=== PATIENT | female | born 1955 | race Two or more races ===

== ENCOUNTER → 2017-08-03 | Outpatient (CLI) | payer MEDICARE, OTHER ==
[2017-06-26 15:12] VITALS: BP 140/73
[~2017-08-03] MED LIST: ASPI-630 PO; ATOR20TA58 PO; CLOP75TA PO; LABE200T2 PO; LISI-334 PO; METF500T4 PO; PANT40TA5 PO; SIMV10TA3 PO
[2017-08-03 14:17] LABS: CALCIUM 9.3 mg/dL (8.5-10.1); GFR 56.6; POTASSIUM 3.9 mmol/L (3.5-5.1)
== END | disposition home or self-care (01) ==
LOC: LAB 13:36
PROVIDERS: ATTEND Internal Medicine Cardiovascular Disease
DX: I10 Essential (primary) hypertension (principal)
CPT/HCPCS: 36415; 80048

== ENCOUNTER 2018-12-18 16:29 | Emergency (ER) | payer MEDICARE, OTHER ==
[~2018-12-18] VITALS: Ht 172.7 cm; Wt 76.7 kg
[~2018-12-18 16:29] MED LIST changes: -LABE200T2 PO; +LABE200T4 PO; +METF500T16 PO; -METF500T4 PO
--- NOTE | 2018-12-18 18:27 | PHYS DOC ---
Past Medical History Past Medical History: Diabetes-Type II, Hypertension, TIA Past Surgical History: No Surgical History Alcohol Use: None Drug Use: None Adult General Chief Complaint Chief Complaint: ANKLE PROBLEM HPI HPI Patient is a 63 year old female who presents with right ankle pain. Patient slipped and fell on the ice yesterday sustaining an eversion mechanism injury. Patient hurts mostly on the lateral portion of her ankle. Patient has been able to walk. Denies any numbness or tingling. Denies any other injury. Denies any head injury or syncope. Pain is moderate in intensity, sharp in nature. Worse with movement and ambulation. No home medicines were taken. Patient notes that she did not take her blood pressure medicine today. She is denying any chest pain, palpitations, headache, weakness, nor shortness of breath.[] Review of Systems Review of Systems Constitutional: Denies fever or chills [] Eyes: Denies change in visual acuity, redness, or eye pain [] HENT: Denies nasal congestion or sore throat [] Respiratory: Denies cough or shortness of breath [] Cardiovascular: No chest pain or palpitations[] GI: Denies abdominal pain, nausea, vomiting, bloody stools or diarrhea [] : Denies dysuria or hematuria [] Musculoskeletal: See history of present illness, no back pain.[] Integument: Denies rash or skin lesions [] Neurologic: Denies headache, focal weakness or sensory changes [] Endocrine: Denies polyuria or polydipsia [] All other systems were reviewed and found to be within normal limits, except as documented in this note. Current Medications Current Medications Current Medications Medications (Trade) Dose Ordered Sig/Kris Start Time Stop Time Status Last Admin Dose Admin Acetaminophen (Tylenol) 500 mg 1X ONCE 12/18/18 18:45 12/18/18 18:46 DC 12/18/18 19:06 500 MG Lisinopril (Prinivil) 20 mg 1X ONCE 12/18/18 18:30 12/18/18 18:31 DC 12/18/18 18:29 20 MG Allergies Allergies Allergies Coded Allergies Type Severity Reaction Last Updated Verified No Known Drug Allergies 06/20/15 No Physical Exam Physical Exam Constitutional: Well developed, well nourished, no acute distress, non-toxic appearance. [] HENT: Normocephalic, atraumatic, bilateral external ears normal, oropharynx moist, no oral exudates, nose normal. [] Eyes: PERRLA, EOMI, conjunctiva normal, no discharge. [] Neck: Normal range of motion, no tenderness, supple, no stridor. [] Cardiovascular:Heart rate regular rhythm, no murmur [] Lungs & Thorax: Bilateral breath sounds clear to auscultation [] Abdomen: Not examined[] Skin: Warm, dry, no erythema, no rash. [] Back: No tenderness, no CVA tenderness. [] Extremities: Right ankle: Tenderness and swelling over the lateral malleolus. No base of the fifth metatarsal tenderness. No knee pain., A joint above and a joined below were evaluated and were normal. Cap refills less than 2 seconds. Patient is distal neurovascularly intact. Left ankle is normal, no edema, no tenderness.[] Neurologic: Alert and oriented X 3, normal motor function, normal sensory function, no focal deficits noted. [] Psychologic: Affect normal, judgement normal, mood normal. [] Current Patient Data Vital Signs Vital Signs Date Time Temp Pulse Resp B/P (MAP) Pulse Ox O2 Delivery O2 Flow Rate FiO2 12/18/18 18:29 83 264/126 12/18/18 17:55 98.5 20 100 Room Air 98.5 EKG EKG [] Radiology/Procedures Radiology/Procedures Right ankle x-ray shows a distal fibula fracture well approximated[] Course & Med Decision Making Course & Med Decision Making Pertinent Labs and Imaging studies reviewed. (See chart for details) ED course: Patient arrived, was placed in bed, tolerate exam well. Her blood pressure was noted to be elevated and was given her dose of lisinopril that she neglected to take today. She was additionally given pain medicine. She tolerated the x-ray well. She had a splint applied after the x-ray. After the splint was applied she was distal neurovascularly intact. No complications. All findings were discussed with the patient including the need to take her blood pressure medicine as prescribed. Decision-making: There is no evidence of an open fracture, significant family displaced or comminuted fracture, nor neurovascular compromise. No evidence of secondary injury.[] Dragon Disclaimer Dragon Disclaimer This electronic medical record was generated, in whole or in part, using a voice recognition dictation system. Departure Departure Impression: Primary Impression: Closed fracture of right distal fibula Additional Impression: Hypertension Disposition: HOME, SELF-CARE Condition: IMPROVED Referrals: UNKNOWN PCP NAME (PCP) MARTINE SALDANA MD Call Thursday to set up an appointment this week Patient Instructions: Ankle Fracture, Cast or Splint Care, Crutch Use, DASH Diet, Hypertension Additional Instructions: Call Dr. Saldana's office on Thursday, the orthopedic surgeon, to set up follow- up appointment. Take your medication as prescribed. Return to the ER if worsening pain, weakness, or any other concerns. Scripts Hydrocodone/Apap 5-325 (NORCO 5-325 TABLET) 1 Each Tablet 1-2 EACH PO PRN Q6HRS PRN for PAIN, #15 as needed for pain Prov: KIRILL MELGAR DO 12/18/18 Meloxicam (MELOXICAM) 7.5 Mg Tablet 7.5 MG PO DAILY, #20 TAB Prov: KIRILL MELGAR DO 12/18/18 Problem Qualifiers Primary Impression: Closed fracture of right distal fibula Encounter type: initial encounter Fracture morphology: unspecified fracture morphology Qualified Codes: S82.831A - Other fracture of upper and lower end of right fibula, initial encounter for closed fracture Additional Impression: Hypertension Hypertension type: unspecified Qualified Codes: I10 - Essential (primary) hypertension KIRILL MELGAR DO Dec 18, 2018 18:27
[2018-12-18] MEDS ORDERED: LISINOPRIL 10 MG TABLET PO ONE (18:30)
[2018-12-18] MEDS ORDERED: ACETAMINOPHEN 500 MG TABLET PO ONE (18:45)
[2018-12-18] MEDS ORDERED: MELO7.5T29 PO (19:34)
[2018-12-18] MEDS ORDERED: HYDR-3164 PO (19:34)
[2018-12-18 20:25] VITALS: BP 191/114
--- NOTE | 2018-12-20 14:16 | RAD ---
Three-view right ankle study Clinical indications: Lateral right ankle pain and swelling. FINDINGS: Lateral soft tissue swelling is seen. There is a nondisplaced spiral fracture of the distal right fibular metadiaphysis. The mortise ankle joint is intact. IMPRESSION: Acute posttraumatic fracture of the distal right fibula. Electronically signed by: Yosef Campos MD (12/20/2018 2:12 PM) [id number]
== END 2018-12-18 20:11 | disposition home or self-care (01) ==
LOC: ER 16:29
DX: S82.831A Other fracture of upper and lower end of right fibula, initial encounter for closed fracture (principal); I10 Essential (primary) hypertension; E11.9 Type 2 diabetes mellitus without complications; Z86.73 Personal history of transient ischemic attack (TIA), and cerebral infarction without residual deficits; W00.0XXA Fall on same level due to ice and snow, initial encounter; Y93.89 Activity, other specified; Y92.89 Other specified places as the place of occurrence of the external cause; Y99.8 Other external cause status
CPT/HCPCS: 29125; 29505; 29515; 73610; 99284

== ENCOUNTER 2019-08-20 13:27 | Inpatient (IN) | payer OTHER ==
[~2019-08-20] VITALS: Ht 172.7 cm; Wt 75.7 kg
[~2019-08-20 13:27] MED LIST changes: +HYDR-3164 PO; +MELO7.5T29 PO; -PANT40TA5 PO; +PANT40TA77 PO; +SIMV10TA15 PO; -SIMV10TA3 PO
[2019-08-20] MEDS ORDERED: NITROGLYCERIN SUBLINGUAL 0.4 MG BOTTLE OF 25. SL PRN (14:00)
[2019-08-20] MEDS ORDERED: MORPHINE SULFATE 2 MG/ML VIAL. IV/SQ PRN (14:00)
[2019-08-20 14:08] LABS: BASO # 0.1 x10^3/uL (0.0-0.2); BASO % 1 % (0-3); EOS # 0.1 x10^3/uL (0.0-0.7); EOS % 1 % (0-3); HEMATOCRIT 44.2 % (36.0-47.0); HEMOGLOBIN 15.1 g/dL (12.0-15.5); LYMPH % 25 % (24-48); MEAN CORPUSCULAR HEMOGLOBIN 32 pg (25-35); MEAN CORPUSCULAR HGB CONC 34 g/dL (31-37); MEAN CORPUSCULAR VOLUME 93 fL (79-100); MONO # 0.8 x10^3/uL (0.0-1.1); MONO % 10 % (0-9); NEUT # 5.1 x10^3/uL (1.8-7.7); NEUT % 64 % (31-73); PLATELET COUNT 190 x10^3/uL (140-400); RED BLOOD COUNT 4.76 x10^6/uL (3.50-5.40); RED CELL DISTRIBUTION WIDTH 13.1 % (11.5-14.5)
[2019-08-20] MEDS ORDERED: ASPIRIN 325 MG TABLET PO ONE (14:15)
[2019-08-20] MEDS ORDERED: LIDO:MAALOX 1:1 20 ML SINGLE DOSE. SWSW ONE (14:15)
[2019-08-20 14:17] LABS: CALCIUM 9.6 mg/dL (8.5-10.1); CREATININE 1.5 mg/dL (0.6-1.0); GFR 35.2; POTASSIUM 3.5 mmol/L (3.5-5.1)
[2019-08-20 14:23] LABS: ALBUMIN 4.4 g/dL (3.4-5.0); ALBUMIN/GLOBULIN RATIO 1.1 (1.0-1.7); MAGNESIUM 1.7 mg/dL (1.8-2.4); TOTAL PROTEIN 8.5 g/dL (6.4-8.2)
--- NOTE | 2019-08-20 14:25 | RAD ---
ACUTE ABDOMEN SERIES History: Chest pain, heartburn for 2 days Comparison: June 24, 2017 chest radiograph Findings: Single view of the chest and single supine and upright views of the abdomen are submitted. There is again enlargement of the pericardial cardiac silhouette. There is again tortuous thoracic aorta, atherosclerotic calcification near arch. There is no lobar infiltrate, pleural fluid, pneumothorax. No free air is identified. No significantly dilated gas-filled small bowel is identified. There is retained stool in segments of the transverse colon. There is small somewhat linear opacity in the right pelvic region, uncertain AP location. There is likely phlebolith in the left pelvis. Impression: 1. There is again enlargement of the pericardial cardiac silhouette. There is an overall nonobstructive bowel gas pattern. Electronically signed by: Suresh Hudson MD (08/20/2019 2:22 PM) [facility]
[2019-08-20] MEDS ORDERED: LABETALOL 20 MG/4 ML DISP.SYRIN. IVP ONE (14:30)
--- NOTE | 2019-08-20 16:06 | PDOC1 ---
History and Physical Date of Admission Date of Admission DATE: 08/20/19 TIME: 16:04 Identification/Chief Complaint Chief Complaint seen in er with epigastric discomfort today, elevated troponin i, admitted for cardiac work-up Past Medical History Past Medical History Past Medical History Past Medical History: Diabetes-Type II, Hypertension, TIA Past Surgical History: No Surgical History Alcohol Use: None Drug Use: None PMH: PMH: HTN, IDDM, CVA, HLD FH: Family History: No pertinent hx (denies GI cancers) Social History: Smoke: No ALCOHOL: other (denies drinking, urine ethyl alcohol +) 2016 Drugs: None Cardiovascular: HTN, Hyperlipidemia CENTRAL NERVOUS SYSTEM: CVA GI: No pertinent hx Heme/Onc: No pertinent hx Hepatobiliary: No pertinent hx Psych: No pertinent hx Musculoskeletal: Osteoarthritis Infectious disease: No pertinent hx Renal/: No pertinent hx Endocrine: Diabetes, Other Past Surgical History Past Surgical History: No pertinent history Family History Family History: Hypertension Social History Smoke: No ALCOHOL: none Drugs: None Current Medications Current Medications Current Medications Aspirin (Janeth Aspirin) 325 mg 1X ONCE PO Last administered on 08/20/19at 14:14; Start 08/20/19 at 14:15; Stop 08/20/19 at 14:16; Status DC Nitroglycerin (Nitrostat) 0.4 mg PRN Q5MIN PRN SL CP RATING > 1/10 Last administered on 08/20/19at 14:15; Start 08/20/19 at 14:00; Stop 08/21/19 at 13:59 Morphine Sulfate (Morphine Sulfate) 2 mg PRN Q15MIN PRN IV/SQ PAIN GREATER THAN 3/10 Last administered on 08/20/19at 14:16; Start 08/20/19 at 14:00; Stop 08/21/19 at 13:59 Multi-Ingredient Mouthwash/Gargle (Gi Cocktail) 20 ml 1X ONCE SWSW Last administered on 08/20/19at 14:15; Start 08/20/19 at 14:15; Stop 08/20/19 at 14:16; Status DC Labetalol HCl (Normodyne Iv Push) 10 mg 1X ONCE IVP Last administered on 08/20/19at 14:44; Start 08/20/19 at 14:30; Stop 08/20/19 at 14:39; Status DC Active Scripts Active Matthews 5-325 Tablet (Acetaminophen/Hydrocodone Bitart) 1 Each Tablet 1-2 Each PO PRN Q6HRS PRN as needed for pain Meloxicam 7.5 Mg Tablet 7.5 Mg PO DAILY Labetalol Hcl 200 Mg Tablet 200 Mg PO BID Pantoprazole Sodium 40 Mg Tablet.dr 40 Mg PO DAILYAC Reported Simvastatin 10 Mg Tablet 1 Tab PO QHS Atorvastatin Calcium 20 Mg Tablet 1 Tab PO DAILY Clopidogrel (Clopidogrel Bisulfate) 75 Mg Tablet 1 Tab PO DAILY Lisinopril 20 Mg Tablet 1 Tab PO DAILY Aspirin 81 Mg Tab.chew 81 Mg PO Metformin Hcl 500 Mg Tablet 500 Mg PO BIDWMEALS Allergies Allergies: Coded Allergies: No Known Drug Allergies (Unverified , 06/20/15) ROS General: No: Chills, Night Sweats, Fatigue, Malaise, Appetite, Other PSYCHOLOGICAL ROS: No: Anxiety, Behavioral Disorder, Concentration difficultie, Decreased libido, Depression, Disorientation, Hallucinations, Hostility, Irritablity, Memory difficulties, Mood Swings, Obsessive thoughts, Physical abuse, Sexual abuse, Sleep disturbances, Suicidal ideation, Other HEENT: No: Heacaches, Visual Changes, Hearing change, Nasal congestion, Nasal discharge, Oral lesions, Sinus pain, Sore Throat, Epistaxis, Sneezing, Snoring, Tinnitus, Vertigo, Vocal changes, Other ALLERGY AND IMMUNOLOGY: No: Hives, Insect Bite Sensitivity, Itchy/Watery Eyes, Nasal Congestion, Post Nasal Drip, Seasonal Allergies, Other Cardiovascular: yes Chest Pain; No Palpitations, No Orthopnea, No Paroxysmal Noc. Dyspnea, No Edema, No Lt Headedness, No Other Gastrointestinal: No Nausea, No Vomiting, No Abdominal Pain, No Diarrhea, No Constipation, No Melena, No Hematochezia, No Other Musculoskeletal: No Gait Disturbance, No Joint Pain, No Joint Stiffness, No Joint Swelling, No Muscle Pain, No Muscular Weakness, No Pain In:, No Swelling In:, No Other Physical Exam General: Alert, Oriented X3, Cooperative, No acute distress HEENT: PERRLA Lungs: Clear to auscultation, Normal air movement Heart: RRR Breasts: Not examined Abdomen: Normal bowel sounds, Soft Rectal Exam: not examined Neuro: Normal speech, Cranial nerves 3-12 NL Psych/Mental Status: Mental status NL, Mood NL Vitals Vitals Vital Signs Date Time Temp Pulse Resp B/P (MAP) Pulse Ox O2 Delivery O2 Flow Rate FiO2 08/20/19 14:45 82 18 199/99 (132) 100 Nasal Cannula 08/20/19 13:30 98.0 98.0 Labs Labs Laboratory Tests Test 08/20/19 13:42 08/20/19 14:25 White Blood Count 8.0 x10^3/uL (4.0-11.0) Red Blood Count 4.76 x10^6/uL (3.50-5.40) Hemoglobin 15.1 g/dL (12.0-15.5) Hematocrit 44.2 % (36.0-47.0) Mean Corpuscular Volume 93 fL (79-100) Mean Corpuscular Hemoglobin 32 pg (25-35) Mean Corpuscular Hemoglobin Concent 34 g/dL (31-37) Red Cell Distribution Width 13.1 % (11.5-14.5) Platelet Count 190 x10^3/uL (140-400) Neutrophils (%) (Auto) 64 % (31-73) Lymphocytes (%) (Auto) 25 % (24-48) Monocytes (%) (Auto) 10 % (0-9) Eosinophils (%) (Auto) 1 % (0-3) Basophils (%) (Auto) 1 % (0-3) Neutrophils # (Auto) 5.1 x10^3/uL (1.8-7.7) Lymphocytes # (Auto) 2.0 x10^3/uL (1.0-4.8) Monocytes # (Auto) 0.8 x10^3/uL (0.0-1.1) Eosinophils # (Auto) 0.1 x10^3/uL (0.0-0.7) Basophils # (Auto) 0.1 x10^3/uL (0.0-0.2) Sodium Level 142 mmol/L (136-145) Potassium Level 3.5 mmol/L (3.5-5.1) Chloride Level 100 mmol/L (98-107) Carbon Dioxide Level 30 mmol/L (21-32) Anion Gap 12 (6-14) Blood Urea Nitrogen 26 mg/dL (7-20) Creatinine 1.5 mg/dL (0.6-1.0) Estimated GFR (Cockcroft-Gault) 35.2 BUN/Creatinine Ratio 17 (6-20) Glucose Level 173 mg/dL (70-99) Calcium Level 9.6 mg/dL (8.5-10.1) Magnesium Level 1.7 mg/dL (1.8-2.4) Total Bilirubin 1.0 mg/dL (0.2-1.0) Aspartate Amino Transf (AST/SGOT) 15 U/L (15-37) Alanine Aminotransferase (ALT/SGPT) 14 U/L (14-59) Alkaline Phosphatase 57 U/L (46-116) Creatine Kinase 153 U/L (26-192) Creatine Kinase MB (Mass) 0.9 ng/mL (0.0-3.6) Creatine Kinase MB Relative Index 0.6 % (0-4) Troponin I Quantitative 0.147 ng/mL (0.000-0.055) LF-Vfo-D-Type Natriuretic Peptide 266 pg/mL (0-124) Total Protein 8.5 g/dL (6.4-8.2) Albumin 4.4 g/dL (3.4-5.0) Albumin/Globulin Ratio 1.1 (1.0-1.7) Lipase 197 U/L (73-393) D-Dimer (Luz Marina) 0.32 ug/mlFEU (0.00-0.50) Laboratory Tests Test 08/20/19 13:42 08/20/19 14:25 White Blood Count 8.0 x10^3/uL (4.0-11.0) Red Blood Count 4.76 x10^6/uL (3.50-5.40) Hemoglobin 15.1 g/dL (12.0-15.5) Hematocrit 44.2 % (36.0-47.0) Mean Corpuscular Volume 93 fL (79-100) Mean Corpuscular Hemoglobin 32 pg (25-35) Mean Corpuscular Hemoglobin Concent 34 g/dL (31-37) Red Cell Distribution Width 13.1 % (11.5-14.5) Platelet Count 190 x10^3/uL (140-400) Neutrophils (%) (Auto) 64 % (31-73) Lymphocytes (%) (Auto) 25 % (24-48) Monocytes (%) (Auto) 10 % (0-9) Eosinophils (%) (Auto) 1 % (0-3) Basophils (%) (Auto) 1 % (0-3) Neutrophils # (Auto) 5.1 x10^3/uL (1.8-7.7) Lymphocytes # (Auto) 2.0 x10^3/uL (1.0-4.8) Monocytes # (Auto) 0.8 x10^3/uL (0.0-1.1) Eosinophils # (Auto) 0.1 x10^3/uL (0.0-0.7) Basophils # (Auto) 0.1 x10^3/uL (0.0-0.2) Sodium Level 142 mmol/L (136-145) Potassium Level 3.5 mmol/L (3.5-5.1) Chloride Level 100 mmol/L (98-107) Carbon Dioxide Level 30 mmol/L (21-32) Anion Gap 12 (6-14) Blood Urea Nitrogen 26 mg/dL (7-20) Creatinine 1.5 mg/dL (0.6-1.0) Estimated GFR (Cockcroft-Gault) 35.2 BUN/Creatinine Ratio 17 (6-20) Glucose Level 173 mg/dL (70-99) Calcium Level 9.6 mg/dL (8.5-10.1) Magnesium Level 1.7 mg/dL (1.8-2.4) Total Bilirubin 1.0 mg/dL (0.2-1.0) Aspartate Amino Transf (AST/SGOT) 15 U/L (15-37) Alanine Aminotransferase (ALT/SGPT) 14 U/L (14-59) Alkaline Phosphatase 57 U/L (46-116) Creatine Kinase 153 U/L (26-192) Creatine Kinase MB (Mass) 0.9 ng/mL (0.0-3.6) Creatine Kinase MB Relative Index 0.6 % (0-4) Troponin I Quantitative 0.147 ng/mL (0.000-0.055) AZ-Rfw-E-Type Natriuretic Peptide 266 pg/mL (0-124) Total Protein 8.5 g/dL (6.4-8.2) Albumin 4.4 g/dL (3.4-5.0) Albumin/Globulin Ratio 1.1 (1.0-1.7) Lipase 197 U/L (73-393) D-Dimer (Luz Marina) 0.32 ug/mlFEU (0.00-0.50) Images Images Nurse/Tech Notes [id number], lungs sound clear Consent: The procedure was explained to the patient in lay terms. Informed consent was witnessed. Timeout was entered into [employer]. History and Stress Test performed by Araceli Jeffrey R.N. Pharm. Details Pharmacologic stress testing was performed using 0.4mg per 5ml of regadenoson given intravenously over 7-10 seconds. Stress Symptoms No chest pain or symptoms. POST EXERCISE Reason for Termination: Infusion complete Max HR: 96 bpm Max Blood Pressure: 102/60mmHg Blood Pressure response to exercise: Blunted blood pressure during stress. Chest Pain: No. Arrhythmia: No. ST Change: No. INTERPRETATION Stress EKG Conclusion: No evidence of vasodilator induced EKG changes. Imaging Protocol IMAGE PROTOCOL: Rest Tc-99m/stress Tc-99m 1 day Rest: Stress: Viability: Radiopharm. Tc99m Sestamibi Tc99m Sestamibi Dose 11.2mCi 35.5mCi Duration 15min. 10min. Img Date 06/26/2017 06/26/2017 Inj-Img Time 60min. 60min. Rest Admin Site: IV - Left Hand Director Of Marketing Communications: SELENA Foy ARRT (R)(N) Stress Admin Site: IV - Left Hand Director Of Marketing Communications: AV Pack STRESS DATA End Diast. Vol. 82.0ml Av. Heart Rate 69.0bpm End Syst. Vol. 32.0ml CO Index BSA 0.0L/min Myocardial Mass 122.0g Eject. Fraction 61.0% Stress Rates Pk. Fill Rate 2.19EDV/sec LVtime Pk. Fill 134.80msec Pk. Empty Rate 3.34ESV/sec LVtime Pk. Eject 207.93msec 11/11 Pk. Fill 1.33EDV/sec Stress Scores Regional WT 3.00 Summed WT 33.00 Regional WM 0.00 Summed WM 6.00 LV Perfusion There is a small sized, moderate in intensity fixed lateral wall defect, likely artifactual in nature. Wall Motion Normal wall motion. LV Perf. Quant 17 Seg. SSS 7.00 17 Seg. SRS 2.00 17 Seg. SDS 5.00 Stress Defect Extent (% LAD) 0.00 Rest Defect Extent (% LAD) 0.00 Rev. Defect Extent (% LAD) 0.00 Stress Defect Extent (% LCX) 67.50 Rest Defect Extent (% LCX) 52.50 Rev. Defect Extent (% LCX) 47.50 Stress Defect Extent (% RCA) 0.00 Rest Defect Extent (% RCA) 0.00 Rev. Defect Extent (% RCA) 0.00 Stress Defect Extent (% FARHAD) 12.20 Rest Defect Extent (% FARHAD) 9.10 Rev. Defect Extent (% FARHAD) 8.50 Other Information Quality:Average Risk Assessment: Low Risk Conclusion 1. No evidence of vasodilator induced EKG changes. 2. Fixed lateral wall defect suggestive of artifact. 3. Normal LV function. EF 61% 4. Low risk study. DICTATED and SIGNED BY: MARIE DOWD MD DATE: 06/26/17 7107 CC: DAGO BAR III DO; HECTOR ALATORRE MANAGER BANQUET; SUMIT BYERS Jr, MD ~ Pulmonary Valve PV Peak Velocity 140.5cm/s Pulmonary Vein S1 Velocity 69.3cm/s D2 Velocity 36.9cm/s PVa duration 74msec LEFT VENTRICLE The left ventricle is normal size. There is moderate concentric left ventricular hypertrophy. The left ventricular systolic function is normal. The Ejection Fraction is 65-70%. There is normal LV segmental wall motion. Transmitral Doppler flow pattern is Grade I-abnormal relaxation pattern. RIGHT VENTRICLE The right ventricle is not well visualized. Portions of the right ventricle seen show normal ventricular systolic function. ATRIA The left atrium size is normal. The right atrium is not visualized, unable to assess. The interatrial septum is intact with no evidence for an atrial septal defect or patent foramen ovale as noted on 2-D or Doppler imaging. AORTIC VALVE The aortic valve is mildly sclerotic. The aortic valve is trileaflet. Doppler and Color Flow revealed no significant aortic regurgitation. There is no significant aortic valvular stenosis. MITRAL VALVE Mitral annular calcification is mild. The mitral valve leaflets are thickened. There is no evidence of mitral valve prolapse. There is no mitral valve stenosis. Doppler and Color Flow revealed no mitral valve regurgitation noted. TRICUSPID VALVE Doppler and Color Flow revealed no tricuspid valve regurgitation noted. Unable to determine pulmonary artery pressure at exam time. PULMONIC VALVE The pulmonary valve is not well visualized but appears to open adequately. Doppler and Color Flow revealed pulmonic valvular regurgitation. There is no pulmonic valvular stenosis by spectral Doppler. GREAT VESSELS The aortic root is normal in size. The ascending aorta is normal in size. The pulmonary artery is normal. The IVC is normal in size and collapses >50% with inspiration. PERICARDIAL EFFUSION There is no evidence of significant pericardial effusion. Critical Notification Critical Value: No <Conclusion> The left ventricular systolic function is normal. The Ejection Fraction is 65-70%. There is normal LV segmental wall motion. Transmitral Doppler flow pattern is Grade I-abnormal relaxation pattern. There is no evidence of significant pericardial effusion. DICTATED and SIGNED BY: VALENTINA MARQUEZ MD DATE: 06/25/17 2322 CC: DAGO BAR III DO; HECTOR ALATORRE APRN; VALENTINA MARQUEZ MD; SUMIT BYERS Jr, MD ~ MRI Brain without contrast History:Hypertension, dizziness, abnormal head CT Technique: Multiplanar, multisequential noncontrast MR imaging was performed of the brain. Contrast: None Comparison: None Findings: There is no evidence of recent infarct or cytotoxic edema. Ventricular size is within normal limits. There is mild prominence of the supratentorial subarachnoid spaces near the vertex.There is no significant midline shift, intra-axial mass effect, or focal abnormal extra-axial fluid collection. There is multifocal overall moderate T2 and FLAIR hyperintense signal abnormality of the supratentorial white matter bilaterally, greatest of the bilateral centrum semiovale. Some foci have a perpendicular orientation relative to the lateral ventricles. There are also superimposed foci of old lacunar infarcts of the left caudate nucleus, right frontal white matter, and also at the margin of the right rouse radiata and basal ganglia. There is also small focus of T2 and FLAIR hyperintense signal abnormality of the right cerebellum. There is focus of hemosiderin deposition of the right basal ganglia compatible with old microhemorrhage. There is preservation of the major intracranial flow-voids at the skull base. The mastoid air cells are mostly aerated, minimal fluid inferiorly on the right. The cerebellar tonsils are at the lower limits of normal in location. There is no significant abnormality of the pineal gland or pituitary gland. There is preserved marrow signal of the clivus. There is a small 0.4 cm Tornwaldt's cyst. There is mild left maxillary sinus mucosal thickening, also likely small mucous retention cysts of the bilateral maxillary sinuses. There is mild bilateral ethmoid air cell mucosal thickening. Impression: 1. There is no evidence of recent infarct or intracranial mass effect. 2. Multifocal overall moderate T2 and FLAIR hyperintense abnormality of the supratentorial white matter is most likely due to chronic microvascular ischemic disease given the history of hypertension unless known previous history of an inflammatory demyelinating disease. There are also small old lacunar infarcts as stated. There is a focus of old microhemorrhage of the right basal ganglia. Electronically signed by: Wai Brothers MD (06/24/2017 5:34 PM) [facility] DICTATED and SIGNED BY: WAI BROTHERS MD DATE: 06/24/17 1726 ACUTE ABDOMEN SERIES History: Chest pain, heartburn for 2 days Comparison: June 24, 2017 chest radiograph Findings: Single view of the chest and single supine and upright views of the abdomen are submitted. There is again enlargement of the pericardial cardiac silhouette. There is again tortuous thoracic aorta, atherosclerotic calcification near arch. There is no lobar infiltrate, pleural fluid, pneumothorax. No free air is identified. No significantly dilated gas-filled small bowel is identified. There is retained stool in segments of the transverse colon. There is small somewhat linear opacity in the right pelvic region, uncertain AP location. There is likely phlebolith in the left pelvis. Impression: 1. There is again enlargement of the pericardial cardiac silhouette. There is an overall nonobstructive bowel gas pattern. Electronically signed by: Wai Brothers MD (08/20/2019 2:22 PM) [facility] DICTATED and SIGNED BY: WAI BROTHERS MD DATE: 08/20/19 1422 VTE Prophylaxis Ordered VTE Prophylaxis Devices: Yes VTE Pharmacological Prophylaxi: No Assessment/Plan Assessment/Plan impression 1. chest discomfort 2. elevated troponin i 3. hx hypertension 4. small old lacunar infarcts mri 2017 focus of old microhemorrhage of the right basal ganglia. 5. HX GERD plan admit serial troponin i cardiology consult NOW echo cvc bed bp control home meds DVT PROPHYLAXIS d/w RADHA IN ER 74 MIN PT EXAM, CHART REVIEW, > 50% OF TIME SPENT WITH EXAM, CHART REVIEW, PT CARE COORDINATION YELENA WADE MD Aug 20, 2019 16:06
[2019-08-20] MEDS ORDERED: DOCUSATE SODIUM 100 MG CAPSULE. PO PRN (16:15)
[2019-08-20] MEDS ORDERED: LORazepam 0.5 MG TABLET PO PRN (16:15)
[2019-08-20] MEDS ORDERED: cloNIDine HCL 0.1 MG TABLET PO PRN (16:15)
[2019-08-20] MEDS ORDERED: guaiFENesin ORAL 200 MG/10 ML LIQUID. PO PRN (16:15)
[2019-08-20] MEDS ORDERED: HYDROcodone/APAP 5/325MG 1 TAB TABLET PO PRN ×2 (16:15→16:30)
[2019-08-20] MEDS ORDERED: ALBUTEROL SULFATE 2.5 MG/3 ML NEBU. NEB PRN (16:15)
[2019-08-20] MEDS ORDERED: ACETAMINOPHEN 325 MG TABLET. PO PRN (16:15)
[2019-08-20] MEDS ORDERED: 0.9 % SODIUM CHLORIDE 10 ML DISP.SYRIN. IV PRN (16:15)
[2019-08-20] MEDS ORDERED: ONDANSETRON PF 4 MG/2 ML VIAL. IV PRN ×2 (16:15→16:30)
[2019-08-20] MEDS ORDERED: IV NORMAL SALINE 1000ML BAG 1,000 ML IV ONE (16:30)
[2019-08-20] MEDS ORDERED: MORPHINE SULFATE 4 MG/ML VIAL. IV PRN (16:30)
--- NOTE | 2019-08-20 16:38 | PHYS DOC ---
Past Medical History Past Medical History: CAD, Diabetes-Type II, Hypertension, TIA (RADHA LAURA APRN) Past Surgical History: No Surgical History (RADHA LAURA APRN) Alcohol Use: None Drug Use: None (RADHA LAURA APRN) Attending Signature I have participated in the care of this patient and I have reviewed and agree with all pertinent clinical information above including history, exam, and recommendations. (GLORIA SOUZA MD) Adult General Chief Complaint Chief Complaint: CHEST PAIN-CARDIAC NATURE HPI HPI Patient is a 63 year old female with history of hypertension, diabetes type 2, TIA with no residual who presents to the ED today complaining over burning 2 out of 10 external chest pain that began one and a half days ago. Patient states she thought it is heartburn but she is afraid to take Zantac because it she saw on the news it causes cancer. Denies anything specifically exacerbating or relieving her symptoms. She states she does not have a PCP, she states she normally goes to one of the local urgent cares and they give her medications for diabetes and high blood pressure. (RADHA LAURA APRN) Review of Systems Review of Systems Constitutional: Denies fever or chills [] Eyes: Denies change in visual acuity, redness, or eye pain [] HENT: Denies nasal congestion or sore throat [] Respiratory: Denies cough or shortness of breath [] Cardiovascular: Reports chest pain. GI: Denies abdominal pain, nausea, vomiting, bloody stools or diarrhea [] : Denies dysuria or hematuria [] Musculoskeletal: Denies back pain or joint pain [] Integument: Denies rash or skin lesions [] Neurologic: Denies headache, focal weakness or sensory changes [] All other systems were reviewed and found to be within normal limits, except as documented in this note. (RADHA LAURA APRN) Current Medications Current Medications Current Medications Medications (Trade) Dose Ordered Sig/Kris Start Time Stop Time Status Last Admin Dose Admin Aspirin (Janeth Aspirin) 325 mg 1X ONCE 08/20/19 14:15 08/20/19 14:16 DC 08/20/19 14:14 325 MG Labetalol HCl (Normodyne Iv Push) 10 mg 1X ONCE 08/20/19 14:30 08/20/19 14:39 DC 10/12/19 14:44 10 MG Morphine Sulfate (Morphine Sulfate) 2 mg PRN Q15MIN PRN 08/20/19 14:00 08/20/19 16:25 DC 08/20/19 14:16 2 MG Multi-Ingredient Mouthwash/Gargle (Gi Cocktail) 20 ml 1X ONCE 08/20/19 14:15 08/20/19 14:16 DC 08/20/19 14:15 20 ML Nitroglycerin (Nitrostat) 0.4 mg PRN Q5MIN PRN 08/20/19 14:00 08/21/19 13:59 08/20/19 14:15 0.4 MG (GLORIA SOUZA MD) Allergies Allergies Allergies Coded Allergies Type Severity Reaction Last Updated Verified No Known Drug Allergies 06/20/15 No (GLORIA SOUZA MD) Physical Exam Physical Exam Constitutional: Well developed, well nourished, no acute distress, non-toxic appearance. [] HENT: Normocephalic, atraumatic, bilateral external ears normal, oropharynx moist, no oral exudates, nose normal. [] Eyes: PERRLA, EOMI, conjunctiva normal, no discharge. [] Neck: Normal range of motion, no tenderness, supple, no stridor. [] Cardiovascular:Heart rate regular rhythm, no murmur [] Lungs & Thorax: Bilateral breath sounds clear to auscultation [] Abdomen: Bowel sounds normal, soft, no tenderness, no masses, no pulsatile mary s. [] Skin: Warm, dry, no erythema, no rash. [] Back: No tenderness, no CVA tenderness. [] Extremities: No tenderness, no cyanosis, no clubbing, ROM intact, no edema. [] Neurologic: Alert and oriented X 3, normal motor function, normal sensory function, no focal deficits noted. [] Psychologic: Affect normal, judgement normal, mood normal. [] (RADHA LAURA APRN) Current Patient Data Vital Signs Vital Signs Date Time Temp Pulse Resp B/P (MAP) Pulse Ox O2 Delivery O2 Flow Rate FiO2 08/20/19 14:45 82 18 199/99 (132) 100 Nasal Cannula 08/20/19 13:30 98.0 98.0 (GLORIA SOUZA MD) Lab Values Laboratory Tests Test 08/20/19 13:42 08/20/19 14:25 White Blood Count 8.0 x10^3/uL (4.0-11.0) Red Blood Count 4.76 x10^6/uL (3.50-5.40) Hemoglobin 15.1 g/dL (12.0-15.5) Hematocrit 44.2 % (36.0-47.0) Mean Corpuscular Volume 93 fL (79-100) Mean Corpuscular Hemoglobin 32 pg (25-35) Mean Corpuscular Hemoglobin Concent 34 g/dL (31-37) Red Cell Distribution Width 13.1 % (11.5-14.5) Platelet Count 190 x10^3/uL (140-400) Neutrophils (%) (Auto) 64 % (31-73) Lymphocytes (%) (Auto) 25 % (24-48) Monocytes (%) (Auto) 10 % (0-9) H Eosinophils (%) (Auto) 1 % (0-3) Basophils (%) (Auto) 1 % (0-3) Neutrophils # (Auto) 5.1 x10^3/uL (1.8-7.7) Lymphocytes # (Auto) 2.0 x10^3/uL (1.0-4.8) Monocytes # (Auto) 0.8 x10^3/uL (0.0-1.1) Eosinophils # (Auto) 0.1 x10^3/uL (0.0-0.7) Basophils # (Auto) 0.1 x10^3/uL (0.0-0.2) Sodium Level 142 mmol/L (136-145) Potassium Level 3.5 mmol/L (3.5-5.1) Chloride Level 100 mmol/L (98-107) Carbon Dioxide Level 30 mmol/L (21-32) Anion Gap 12 (6-14) Blood Urea Nitrogen 26 mg/dL (7-20) H Creatinine 1.5 mg/dL (0.6-1.0) H Estimated GFR (Cockcroft-Gault) 35.2 BUN/Creatinine Ratio 17 (6-20) Glucose Level 173 mg/dL (70-99) H Calcium Level 9.6 mg/dL (8.5-10.1) Magnesium Level 1.7 mg/dL (1.8-2.4) L Total Bilirubin 1.0 mg/dL (0.2-1.0) Aspartate Amino Transferase (AST) 15 U/L (15-37) Alanine Aminotransferase (ALT) 14 U/L (14-59) Alkaline Phosphatase 57 U/L (46-116) Creatine Kinase 153 U/L (26-192) Creatine Kinase MB (Mass) 0.9 ng/mL (0.0-3.6) Creatine Kinase MB Relative Index 0.6 % (0-4) Troponin I Quantitative 0.147 ng/mL (0.000-0.055) PL-Rpe-D-Type Natriuretic Peptide 266 pg/mL (0-124) H Total Protein 8.5 g/dL (6.4-8.2) H Albumin 4.4 g/dL (3.4-5.0) Albumin/Globulin Ratio 1.1 (1.0-1.7) Lipase 197 U/L (73-393) D-Dimer (Luz Marina) 0.32 ug/mlFEU (0.00-0.50) Laboratory Tests 08/20/19 13:42 Laboratory Tests 08/20/19 13:42 (GLORIA SOUZA MD) EKG EKG [address] Souza sinus rhythm HR 90 no STEMI[] (RADHA LAURA APRN) Radiology/Procedures Radiology/Procedures []PROCEDURE: ACUTE ABDOMEN SERIES ACUTE ABDOMEN SERIES History: Chest pain, heartburn for 2 days Comparison: June 24, 2017 chest radiograph Findings: Single view of the chest and single supine and upright views of the abdomen are submitted. There is again enlargement of the pericardial cardiac silhouette. There is again tortuous thoracic aorta, atherosclerotic calcification near arch. There is no lobar infiltrate, pleural fluid, pneumothorax. No free air is identified. No significantly dilated gas-filled small bowel is identified. There is retained stool in segments of the transverse colon. There is small somewhat linear opacity in the right pelvic region, uncertain AP location. There is likely phlebolith in the left pelvis. Impression: 1. There is again enlargement of the pericardial cardiac silhouette. There is an overall nonobstructive bowel gas pattern. Electronically signed by: Wai Brothers MD (08/20/2019 2:22 PM) [facility] DICTATED and SIGNED BY: WAI BROTHERS MD DATE: 08/20/19 1422 (RADHA LAURA APRN) Course & Med Decision Making Course & Med Decision Making Pertinent Labs and Imaging studies reviewed. (See chart for details) This is a 63-year-old female patient presented to the ED today complaining of chest pain that began one and half days ago. EKG was negative. Troponin 0.147-patient's troponin has been high since 2017. CBC with normal WBC, CMP with creatinine of 1.5, BUN is 26, glucose of 173, anion gap is normal, magnesium 1.7. D-dimer is normal. Chest x-ray with no acute findings. Patient was given IV magnesium in the ED. IV fluids also ordered. Blood pressure was 243/137 with a heart rate of 90, patient states she has not taken her blood pressure medicine of diabetes medicine for couple days including today. Patient was given labetalol as well as nitroglycerin in the ED. Blood pressure came down to 199/99 HR 82 Heart score-see template Spoke with Dr. Song who accepted patient for admission Spoke with who will f/u with patient (RADHA LAURA APRN) Dragon Disclaimer Dragon Disclaimer This electronic medical record was generated, in whole or in part, using a voice recognition dictation system. (RADHA LAURA APRN) The HEART Score for CP Pts HEART Score for Chest Pain: HEART Score for Chest Pain Response (Comments) Value History Slighlty/Non-Suspicious 0 ECG Normal 0 Age >45 - < 65 1 Risk Factors 1 or 2 Risk Factors 1 Troponin < Normal Limit 0 Total 2 Risk Factors: Risk Factors: DM, Current or recent (<one month) smoker, HTN, HLP, family history of CAD, obesity. Risk Scores: Score 0 - 3: 2.5% MACE over next 6 weeks - Discharge Home Score 4 - 6: 20.3% MACE over next 6 weeks - Admit for Clinical Observation Score 7 - 10: 72.7% MACE over next 6 weeks - Early Invasive Strategies (RADHA LAURA APRN) Departure Departure Impression: Primary Impression: Chest pain Additional Impressions: Accelerated hypertension Acute renal failure Elevated troponin Disposition: ADMITTED INPATIENT Condition: STABLE Referrals: UNKNOWN PCP NAME (PCP) Problem Qualifiers Primary Impression: Chest pain Chest pain type: unspecified Qualified Codes: R07.9 - Chest pain, unspecified Additional Impressions: Acute renal failure Acute renal failure type: unspecified Qualified Codes: N17.9 - Acute kidn ey failure, unspecified RADHA LAURA APRN Aug 20, 2019 16:38 GLORIA SOUZA MD Aug 21, 2019 06:18
[2019-08-20] MEDS ORDERED: MAGNESIUM SULFATE 1GM 100 ML IV ONE (16:45)
[2019-08-20] MEDS: metFORMIN 500 MG TABLET PO SCH (17:28)
[2019-08-20 17:30] VITALS: BP 196/99
[2019-08-20 18:30] VITALS: BP 166/91
[2019-08-20 19:15] VITALS: BP 146/73
[2019-08-20] MEDS: LABETALOL HCL 200 MG TABLET PO SCH (20:36)
[2019-08-20] MEDS ORDERED: SIMVASTATIN 10 MG TABLET PO SCH (21:00)
[2019-08-20] MEDS ORDERED: ATORVASTATIN CALCIUM 20 MG TABLET PO SCH (21:00)
[2019-08-20 23:45] VITALS: BP 120/75
[2019-08-21 03:45] VITALS: BP 142/83
[2019-08-21 05:34] LABS: BASO % 1 % (0-3); EOS # 0.1 x10^3/uL (0.0-0.7); EOS % 1 % (0-3); HEMATOCRIT 39.1 % (36.0-47.0); HEMOGLOBIN 13.1 g/dL (12.0-15.5); LYMPH # 1.7 x10^3/uL (1.0-4.8); LYMPH % 31 % (24-48); MEAN CORPUSCULAR HEMOGLOBIN 31 pg (25-35); MEAN CORPUSCULAR HGB CONC 34 g/dL (31-37); MEAN CORPUSCULAR VOLUME 93 fL (79-100); MONO # 0.5 x10^3/uL (0.0-1.1); MONO % 9 % (0-9); NEUT # 3.2 x10^3/uL (1.8-7.7); NEUT % 58 % (31-73); PLATELET COUNT 156 x10^3/uL (140-400); RED BLOOD COUNT 4.19 x10^6/uL (3.50-5.40); RED CELL DISTRIBUTION WIDTH 12.9 % (11.5-14.5); WHITE BLOOD COUNT 5.5 x10^3/uL (4.0-11.0)
[2019-08-21 07:15] VITALS: BP 153/76
[2019-08-21] MEDS ORDERED: PANTOPRAZOLE 40 MG TABLET.DR. PO SCH (07:30)
[2019-08-21] MEDS ORDERED: ASPIRIN CHEWABLE 81 MG TABLET. PO SCH (08:00)
[2019-08-21] MEDS: metFORMIN 500 MG TABLET PO SCH (08:57)
[2019-08-21] MEDS: LABETALOL HCL 200 MG TABLET PO SCH (08:57)
[2019-08-21] MEDS ORDERED: ENOXAPARIN 40 MG/0.4 ML SYRINGE. SQ SCH (09:00)
[2019-08-21] MEDS ORDERED: CLOPIDOGREL BISULFATE 75 MG TABLET PO SCH (09:00)
[2019-08-21] MEDS ORDERED: LISINOPRIL 20 MG TABLET PO SCH (09:00)
--- NOTE | 2019-08-21 10:03 | PDOC ---
[facility] PROGRESS NOTE Chief Complaint Chief Complaint Epigastric discomfort Chest pain History of Present Illness History of Present Illness 08/21/19 Pt seen and examined at bedside D-dimer is 0.[address] shows enlarged cardiac silhouette Troponin is now 0.110 BP was 156/89 Charts and labs reviewed Will consult cardiology and nephrology ESSIE RN Vitals/I&O Vitals/I&O: Vital Signs Date Time Temp Pulse Resp B/P (MAP) Pulse Ox O2 Delivery O2 Flow Rate FiO2 08/21/19 08:58 60 153/76 08/21/19 07:49 Room Air 08/21/19 07:15 98.3 16 96 98.3 08/20/19 16:50 2.0 I & O 08/20/19 08/20/19 08/21/19 15:00 23:00 07:00 Intake Total 200 ml Balance 200 ml Physical Exam General: Alert, Oriented X3, Cooperative, No acute distress Heart: Regular rate Lungs: Clear Abdomen: Normal bowel sounds, Soft Extremities: No clubbing, No cyanosis Skin: No rashes, No breakdown Labs Labs: Laboratory Tests Test 08/20/19 13:42 08/20/19 14:25 08/20/19 16:40 08/21/19 00:01 White Blood Count 8.0 x10^3/uL (4.0-11.0) Red Blood Count 4.76 x10^6/uL (3.50-5.40) Hemoglobin 15.1 g/dL (12.0-15.5) Hematocrit 44.2 % (36.0-47.0) Mean Corpuscular Volume 93 fL (79-100) Mean Corpuscular Hemoglobin 32 pg (25-35) Mean Corpuscular Hemoglobin Concent 34 g/dL (31-37) Red Cell Distribution Width 13.1 % (11.5-14.5) Platelet Count 190 x10^3/uL (140-400) Neutrophils (%) (Auto) 64 % (31-73) Lymphocytes (%) (Auto) 25 % (24-48) Monocytes (%) (Auto) 10 % (0-9) Eosinophils (%) (Auto) 1 % (0-3) Basophils (%) (Auto) 1 % (0-3) Neutrophils # (Auto) 5.1 x10^3/uL (1.8-7.7) Lymphocytes # (Auto) 2.0 x10^3/uL (1.0-4.8) Monocytes # (Auto) 0.8 x10^3/uL (0.0-1.1) Eosinophils # (Auto) 0.1 x10^3/uL (0.0-0.7) Basophils # (Auto) 0.1 x10^3/uL (0.0-0.2) Sodium Level 142 mmol/L (136-145) Potassium Level 3.5 mmol/L (3.5-5.1) Chloride Level 100 mmol/L (98-107) Carbon Dioxide Level 30 mmol/L (21-32) Anion Gap 12 (6-14) Blood Urea Nitrogen 26 mg/dL (7-20) Creatinine 1.5 mg/dL (0.6-1.0) Estimated GFR (Cockcroft-Gault) 35.2 BUN/Creatinine Ratio 17 (6-20) Glucose Level 173 mg/dL (70-99) Calcium Level 9.6 mg/dL (8.5-10.1) Magnesium Level 1.7 mg/dL (1.8-2.4) Total Bilirubin 1.0 mg/dL (0.2-1.0) Aspartate Amino Transf (AST/SGOT) 15 U/L (15-37) Alanine Aminotransferase (ALT/SGPT) 14 U/L (14-59) Alkaline Phosphatase 57 U/L (46-116) Creatine Kinase 153 U/L (26-192) Creatine Kinase MB (Mass) 0.9 ng/mL (0.0-3.6) Creatine Kinase MB Relative Index 0.6 % (0-4) Troponin I Quantitative 0.147 ng/mL (0.000-0.055) 0.145 ng/mL (0.000-0.055) 0.110 ng/mL (0.000-0.055) JK-Fbw-G-Type Natriuretic Peptide 266 pg/mL (0-124) Total Protein 8.5 g/dL (6.4-8.2) Albumin 4.4 g/dL (3.4-5.0) Albumin/Globulin Ratio 1.1 (1.0-1.7) Lipase 197 U/L (73-393) D-Dimer (Luz Marina) 0.32 ug/mlFEU (0.00-0.50) Test 08/21/19 04:00 White Blood Count 5.5 x10^3/uL (4.0-11.0) Red Blood Count 4.19 x10^6/uL (3.50-5.40) Hemoglobin 13.1 g/dL (12.0-15.5) Hematocrit 39.1 % (36.0-47.0) Mean Corpuscular Volume 93 fL (79-100) Mean Corpuscular Hemoglobin 31 pg (25-35) Mean Corpuscular Hemoglobin Concent 34 g/dL (31-37) Red Cell Distribution Width 12.9 % (11.5-14.5) Platelet Count 156 x10^3/uL (140-400) Neutrophils (%) (Auto) 58 % (31-73) Lymphocytes (%) (Auto) 31 % (24-48) Monocytes (%) (Auto) 9 % (0-9) Eosinophils (%) (Auto) 1 % (0-3) Basophils (%) (Auto) 1 % (0-3) Neutrophils # (Auto) 3.2 x10^3/uL (1.8-7.7) Lymphocytes # (Auto) 1.7 x10^3/uL (1.0-4.8) Monocytes # (Auto) 0.5 x10^3/uL (0.0-1.1) Eosinophils # (Auto) 0.1 x10^3/uL (0.0-0.7) Basophils # (Auto) 0.0 x10^3/uL (0.0-0.2) Review of Systems Review of Systems: No nausea, no vomiting No headache, no changes in vision Assessment and Plan Assessmemt and Plan Problems Medical Problems: (1) Accelerated hypertension Status: Acute (2) Acute renal failure Status: Acute (3) Elevated troponin Status: Acute Assessment Epigastric discomfort Acute renal failure Hypertension DM 2 Plan Cardiac monitoring Consult cardiology Consult nephrology Serial enzymes, EKGs D/C when okay with cardiology Full code Comment Review of Relevant I have reviewed the following items eliezer (where applicable) has been applied. Medications: Current Medications Medications (Trade) Dose Ordered Sig/Kris Route PRN Reason Start Time Stop Time Status Last Admin Dose Admin Aspirin (Janeth Aspirin) 325 mg 1X ONCE PO 08/20/19 14:15 08/20/19 14:16 DC 08/20/19 14:14 Nitroglycerin (Nitrostat) 0.4 mg PRN Q5MIN PRN SL CP RATING > 1/10 08/20/19 14:00 08/21/19 13:59 08/20/19 14:15 Morphine Sulfate (Morphine Sulfate) 2 mg PRN Q15MIN PRN IV/SQ PAIN GREATER THAN 3/10 08/20/19 14:00 08/20/19 16:25 DC 08/20/19 14:16 Multi-Ingredient Mouthwash/Gargle (Gi Cocktail) 20 ml 1X ONCE SWSW 08/20/19 14:15 08/20/19 14:16 DC 08/20/19 14:15 Labetalol HCl (Normodyne Iv Push) 10 mg 1X ONCE IVP 08/20/19 14:30 08/20/19 14:39 DC 08/20/19 14:44 Aspirin (Children'S Aspirin) 81 mg DAILY08 PO 08/21/19 08:00 08/21/19 08:57 Atorvastatin Calcium (Lipitor) 20 mg QHS PO 08/20/19 21:00 08/20/19 20:35 Clopidogrel Bisulfate (Plavix) 75 mg DAILY PO 08/21/19 09:00 08/21/19 08:57 Labetalol HCl (Trandate) 200 mg BID PO 08/20/19 21:00 08/21/19 08:57 Lisinopril (Prinivil) 20 mg DAILY PO 08/21/19 09:00 08/21/19 08:58 Metformin HCl (Glucophage) 500 mg BIDWMEALS PO 08/20/19 17:00 08/21/19 08:57 Pantoprazole Sodium (Protonix) 40 mg DAILYAC PO 08/21/19 07:30 08/21/19 08:57 Clonidine HCl (Catapres) 0.1 mg PRN Q6HRS PRN PO SBP>160 OR DBP>90 08/20/19 16:15 08/20/19 17:26 Enoxaparin Sodium (Lovenox 40mg Syringe) 40 mg DAILY SQ 08/21/19 09:00 08/21/19 08:56 Magnesium Sulfate/ Dextrose 100 ml @ 100 mls/hr 1X ONCE IV 08/20/19 16:45 08/20/19 17:44 DC 08/20/19 18:30 DAGO BAR III DO Aug 21, 2019 10:03
[2019-08-21 10:12] VITALS: BP 156/89
[2019-08-21 10:54] LABS: CALCIUM 9.4 mg/dL (8.5-10.1); CREATININE 1.2 mg/dL (0.6-1.0); GFR 45.5; POTASSIUM 3.5 mmol/L (3.5-5.1)
--- NOTE | 2019-08-21 12:59 | PDOC ---
Provider Note Provider Note Pt. seen and examined. full note dictated. We are still unaware of her medication list. She reports compliance but has not picked up meds from [facility] for [facility] months. She states she gets meds from an online pharmacy and is unable to bring us her meds. I stressed the importance of her medication list and compliance. Her echo is unremarkable. Troponin elevation due to BP She is adamant about leaving today. She was given our office information. Thanks MARIE DOWD MD Aug 21, 2019 12:59
--- NOTE | 2019-08-21 13:13 | CONS ---
DATE OF CONSULTATION: 08/21/2019 REASON FOR CONSULTATION: Elevated troponin and hypertension. HISTORY OF PRESENT ILLNESS: The patient is a pleasant 63-year-old woman who presented to the hospital in the setting of elevated blood pressures. In the ER, she was noted to have systolic blood pressure above 240. It is unclear based on discussion with the whether she was actually taking her medications or not that she was unclear as to her medication list. She since admission has had resolution of her hypertension and feels much better. She has not had any further chest pain. PAST MEDICAL HISTORY: 1. Hypertension. 2. Type 2 diabetes. 3. History of TIA. SOCIAL HISTORY: No alcohol, tobacco or illicit drug use. FAMILY HISTORY: Noncontributory. ALLERGIES: No known drug allergies. CURRENT CARDIOVASCULAR MEDICATIONS: 1. Lisinopril 20 mg daily. 2. Aspirin 81 mg daily. 3. Plavix 75 mg daily. 4. Labetalol 200 mg p.o. b.i.d. 5. Atorvastatin 20 mg daily. REVIEW OF SYSTEMS: Negative unless otherwise mentioned above in the HPI. PHYSICAL EXAMINATION: VITAL SIGNS: Afebrile, 57, 16, 156/89, 98% on room air. GENERAL: She is alert and oriented, no acute distress. HEAD AND NECK: Unremarkable. CARDIAC: Regular rate and rhythm without murmurs, rubs or gallops. LUNGS: Clear to auscultation. ABDOMEN: Soft, nontender, nondistended. No abdominal bruits. NEUROLOGIC: No focal deficits. MUSCULOSKELETAL: No trauma. DIAGNOSTIC STUDIES: Hemoglobin and platelets are within normal limits. Troponin elevated at the peak of 0.147 is down trending to 0.110. BNP is minimally elevated to 66. Toxicology screen previously was notable for alcohol in 2017 but was not completed at this admission. Acute abdominal series suggestive of pericardial silhouette being enlarged, but no significant pathology. She had a nuclear stress test in 06/2017, which did not reveal any significant pathology. She had an echocardiogram in 06/2017, which did not reveal any significant pathology. Renal artery duplex in 06/2017 was unremarkable. IMPRESSION: 1. Elevated troponin, likely type 2 in the setting of hypertensive emergency. 2. Diabetes. 3. Probable dyslipidemia. RECOMMENDATIONS: 1. At this present time, the patient is chest pain free given that her blood pressure is well controlled. We will confirm with her pharmacy her current medication list and titrate as necessary. 2. Echocardiogram at bedside is grossly unremarkable without any obvious evidence of wall motion abnormalities. Supportive care from a cardiac standpoint and if her blood pressure is stable today, she may be discharged from the hospital later this evening after ambulation. Thank you for this consultation. MARIE DOWD MD DR: ANA/juan JOB#: [id number] / [id number]
[2019-08-21 14:13] VITALS: BP 134/75
--- NOTE | 2019-08-21 15:40 | NUR ---
Pt requesting to be discharged from beginning of shift. Dr. Power ok with pt discharging if she follow ups in office with home medications. All discharge education reviewed with pt, states understanding. Pt assisted to car via wheelchair with staff. Denies further needs.
--- NOTE | 2019-08-22 07:18 | EKG ---
[facility] [address] [place] [address] Test Date: 2019-08-20 Test Time: 13:34:29 Pat Name: FERNANDA OZUNA Department: Room: 246 1 Gender: F Bladder Tier: : [id number] Requested By: RADHA LAURA Order Number: [id number] Reading MD: David Power MD Measurements Intervals [place] Rate: 90 P: -21 IL: 148 QRS: -3 QRSD: 90 T: -36 QT: 360 QTc: 444 Interpretive Statements SINUS RHYTHM Electronically Signed On 08-29-2019 8:58:22 CDT by David Power MD
--- NOTE | 2019-08-22 11:24 | CARD ---
MR#: [id number] Date of Study: 08/21/2019 Ordering Physician: YELENA WADE, Referring Physician: YELENA WADE, Tech: Sofya Jaeger APPROVED REPORT EXAM: Two-dimensional and M-mode echocardiogram with Doppler and color Doppler. Other Information Quality : AverageHR: 62bpm INDICATION Chest Pain RISK FACTORS Hypertension 2D DIMENSIONS RVDd3.3 (2.9-3.5cm)Left Atrium(2D)3.6 (1.6-4.0cm) IVSd1.6 (0.7-1.1cm)Aortic Root(2D)3.4 (2.0-3.7cm) LVDd4.6 (3.9-5.9cm)LVOT Diameter2.0 (1.8-2.4cm) PWd1.1 (0.7-1.1cm)LVDs2.5 (2.5-4.0cm) FS (%) 47.0 %SV77.3 ml Aortic Valve AoV Peak Monroe.108.3cm/sAoV VTI21.2cm AO Peak GR.4.7mmHgLVOT VTI 16.54cm AO Mean GR.3mmHg Mitral Valve MV E Ucgoragz58.5cm/sMV DECEL [id number] MV A Ieodibyu53.5cm/sE/A Ratio0.4 TDI Lateral E' P. V4.96cm/sMedial E' P. V4.96cm/s E/Lateral E'8.4E/Medial E'8.4 Tricuspid Valve TR P. Exezxxtl645my/sRAP [id number] TR Peak Gr.22wlMlCMUK52tfTz Pulmonary Vein S1 Vgrzfxjz93.9cm/sS2 Nsmrompn69.45cm/s D2 Vhekfbup39.5cm/sPVa [id number] LEFT VENTRICLE The left ventricle is normal size. There is mild to moderate concentric left ventricular hypertrophy. The left ventricular systolic function is normal and the ejection fraction is within normal range. T he Ejection Fraction is 60-65%. There is normal LV segmental wall motion. Transmitral Doppler flow pa ttern is Grade I-abnormal relaxation pattern. RIGHT VENTRICLE The right ventricle is not well visualized. There is normal right ventricular wall thickness. ATRIA The left atrium size is normal. The right atrium size is normal. Interatrial septum not well visualiz ed. AORTIC VALVE The aortic valve is normal in structure and function. Doppler and Color Flow revealed trace aortic re gurgitation. There is no significant aortic valvular stenosis. MITRAL VALVE The mitral valve is normal in structure and function. There is no evidence of mitral valve prolapse. There is no mitral valve stenosis. Doppler and Color-flow revealed trace mitral regurgitation. TRICUSPID VALVE The tricuspid valve is not well visualized. Doppler and Color Flow revealed trace tricuspid regurgita tion with an estimated PAP of 33 mmHg. There is no tricuspid valve stenosis. PULMONIC VALVE The pulmonic valve is not well visualized. Doppler and Color Flow revealed trace pulmonic valvular re gurgitation. GREAT VESSELS The aortic root is normal in size. 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 PERICARDIAL EFFUSION There is no evidence of significant pericardial effusion. Critical Notification Critical Value: No <Conclusion> The left ventricle is normal size. The left ventricular systolic function is normal and the ejection fraction is within normal range. The Ejection Fraction is 60-65%. There is mild to moderate concentric left ventricular hypertrophy. There is no significant aortic valvular stenosis. Doppler and Color Flow revealed trace aortic regurgitation. Doppler and Color-flow revealed trace mitral regurgitation. Doppler and Color Flow revealed trace tricuspid regurgitation with an estimated PAP of 33 mmHg. The ascending aorta is moderately dilated. Signed by : Estuardo Christopher MD Electronically Approved : 08/22/2019 09:14:24
== END 2019-08-21 15:43 | disposition home or self-care (01) | DRG 304 ==
LOC: ER 13:27 → 2 SOUTH 15:43
PROVIDERS: ADMIT Family Medicine; ATTEND Family Medicine
DX: I16.1 Hypertensive emergency (principal); N17.0 Acute kidney failure with tubular necrosis; I25.10 Atherosclerotic heart disease of native coronary artery without angina pectoris; E11.9 Type 2 diabetes mellitus without complications; Z86.73 Personal history of transient ischemic attack (TIA), and cerebral infarction without residual deficits; I10 Essential (primary) hypertension; Z82.49 Family history of ischemic heart disease and other diseases of the circulatory system; Z79.4 Long term (current) use of insulin; M19.90 Unspecified osteoarthritis, unspecified site; K21.9 Gastro-esophageal reflux disease without esophagitis; E78.5 Hyperlipidemia, unspecified
CPT/HCPCS: 36415; 74022; 80048; 80053; 82553; 83690; 83735; 83880; 84484; 85025; 85379; 93005; 93306; 96374; 96375; J1650; J2270; J3475; J3490; 99285-25; G0378

== ENCOUNTER → 2020-10-16 | Outpatient (CLI) | payer MEDICARE ==
[2020-08-30 11:31] VITALS: BP 140/62
[~2020-10-16] MED LIST changes: +AMLO-187 PO; +INSU100V35 SQ; +LISI10TA2 PO; +NITR1OIN TP; +POLY17PO28 PO
[2020-10-16 14:49] LABS: CALCIUM 9.4 mg/dL (8.5-10.1); GFR 55.8; TOTAL BILIRUBIN 0.3 mg/dL (0.2-1.0); TOTAL PROTEIN 8.1 g/dL (6.4-8.2)
[2020-10-16 14:50] LABS: CHOLESTEROL/HDL RATIO 2.9
== END ==
LOC: LAB 13:45
PROVIDERS: ATTEND Internal Medicine Cardiovascular Disease
DX: E78.5 Hyperlipidemia, unspecified (principal)
CPT/HCPCS: 36415; 80053; 80061; 83721

== ENCOUNTER → 2020-10-31 | Outpatient (CLI) | payer MEDICARE ==
[2020-08-30 11:31] VITALS: BP 140/62
[~2020-10-31] MED LIST changes: +REGADENOSON 0.4 MG/5 ML DISP.SYRIN. IV ONE
--- NOTE | 2020-10-31 09:56 | RAD ---
Clinical Indications: CVA/dizziness. Exam : Carotid Duplex with Grayscale Ultrasound and Spectral and Color Doppler Analysis: PQRS Compliance Statement - Stenosis calculations for CT, MR and conventional angiography are based u nakita measurement of the distal ICA diameter in accordance with the NASCET methodology. Stenosis calcu lations for carotid ultrasound studies are derived from validated velocity criteria which are known t o correlate with the NASCET methodology. Comparison study: None available. Findings: The common, internal and external carotid arteries were examined by grayscale, color and s pectral Doppler ultrasound. There is mild evidence of atherosclerotic disease with minimal calcified plaque at the bilateral carotid bulbs. There is mild elevation of the peak systolic velocity in the left external carotid artery to 211 cm/s, representing a moderate stenosis (a single 9 percent). Sign ificant stenosis in the visualized vessels is otherwise not shown. Flow in both vertebral arteries w as antegrade and normal. The carotid bifurcations appeared high in the neck. The following are the v elocities and ratios in the carotid arteries on both sides: RIGHT ICA PV: 47cm/sec RIGHT CCA PV: 71cm/sec RIGHT ICA ED: 22cm/sec RIGHT IC/CCPV: 0.66 RIGHT VERTEBRAL: antegrade flow RIGHT % STENOSIS: Less than 50 percent LEFT ICA PV: 96cm/sec LEFT CCA PV: 85cm/sec LEFT ICA ED: 26cm/sec LEFT IC/CCPV: 1.4 LEFT VERTEBRAL: antegrade flow LEFT % STENOSIS: Less than 50 percent <50% ICA Stenosis: PSV < 125cm/s (EDV < 40cm/s; SVR < 2.0) 50-69% ICA Stenosis: PSV < 125-229cm/s (EDV 40-99cm/s; SVR 2.0-3.9) >70% ICA Stenosis: PSV > 230cm/s (EDV >100cm/s; SVR >4.0) Impression: Moderate stenosis in the left external carotid artery. Otherwise no hemodynamically significant stenosis on carotid duplex ultrasound with high carotid bifu rcations noted. Electronically signed by: Maya Frederick MD (10/31/2020 9:53 AM) [id number]
--- NOTE | 2020-11-01 07:55 | RAD ---
MR#: [id number] Date of Study: 10/31/2020 Ordering Physician: MARIE DOWD, Referring Physician: LANA HIGGINS Tech: RT Daisy (R) (N) APPROVED REPORT Test Type: Pharmacological Stress Nurse/Tech: Mere Antoine RN Test Indications: Dyspnea on exertion Cardiac History: HTN, See EMR. Medications: ASA 81mg, See EMR. Medical History: DM, See EMR. Resting ECG: SR Resting Heart Rate: 65 bpm Resting Blood Pressure: 195/98mmHg Pretest Chest Pain: No chest pain Nurse/Tech Notes Lungs CTA, Heart tones regular. Consent: The procedure was explained to the patient in lay terms. Informed consent was witnessed. Lázaro eout was entered into [employer]. History and Stress Test performed by [employer]. Details Pharmacologic stress testing was performed using 0.4mg per 5ml of regadenoson given intravenously ove r 7-10 seconds. Stress Symptoms No chest pain or symptoms. POST EXERCISE Reason for Termination: Infusion complete Max HR: 85 bpm Max Blood Pressure: 170/82mmHg Blood Pressure response to exercise: Normal blood pressure response during stress. Heart Rate response to exercise: WNL Chest Pain: No. Arrhythmia: No. ST Change: No. INTERPRETATION Stress EKG Conclusion: Baseline EKG showed sinus rhythm with PVC. No ischemic changes at peak stress . No arrhythmias. Imaging Protocol IMAGE PROTOCOL: Rest Tc-99m/stress Tc-99m 1 day Rest: Stress: Viability: Radiopharm.Tc99m [id number] Sestamibi Dose10.6mCi 33mCi Duration 13min. 13min. Img Date 10/31/2020 10/31/2020 Inj-Img [id number]. 60min. Rest Admin Site:IV - Right AntecubitalAdministrator:RT Daisy (R)(N) Stress Admin Site: IV - Right AntecubitalAdministrator: [facility] STRESS DATA End Diast. Vol.129.0mlLVEDV index BSA70.0ml End Syst. Vol.50.0mlLVESV index BSA27.0ml Myocardial Zhof443.0gEject. Whkqnfsq47.0% Stress Scores Regional WT2.00Summed WT19.00 Regional WM0.00Summed WM5.00 LV Perfusion Scintigraphic images showed moderate sized reversible defect involving the lateral wall and extending into the anterolateral wall consistent with ischemia. Wall Motion Normal left ventricular systolic function with ejection fraction calculated at 64%. LV Perf. Quant 17 Seg. SSS13.00 17 Seg. SRS4.00 17 Seg. SDS9.00 Stress Defect Extent (% LAD)0.00Rest Defect Extent (% LAD)0.00Rev. Defect Extent (% LAD)0.00 Stress Defect Extent (% LCX) 85.00Rest Defect Extent (% LCX)43.80Rev. Defect Extent (% LCX)83.80 Stress Defect Extent (% RCA)0.00Rest Defect Extent (% RCA)0.00Rev. Defect Extent (% RCA)0.00 Stress Defect Extent (% FARHAD)20.40Rest Defect Extent (% FARHAD)8.50Rev. Defect Extent (% FARHAD)20.20 Conclusion 1. Regadenoson cardioisotope stress test showed moderate amount of ischemia involving the lateral wal l extending into the anterolateral wall. 2. Normal left ventricular systolic function with ejection fraction calculated at 64%. 3. Moderate risk for cardiac events. Signed by : Long Varma, Electronically Approved : 11/01/2020 07:55:31
== END ==
LOC: NM 08:25
PROVIDERS: ATTEND Internal Medicine Cardiovascular Disease
DX: I65.23 Occlusion and stenosis of bilateral carotid arteries (principal); R07.9 Chest pain, unspecified; R06.09 Other forms of dyspnea; I10 Essential (primary) hypertension; E11.9 Type 2 diabetes mellitus without complications; Z86.73 Personal history of transient ischemic attack (TIA), and cerebral infarction without residual deficits
CPT/HCPCS: 78452; 93017; 93880; A9500; J2785

== ENCOUNTER → 2022-03-06 | Outpatient (CLI) | payer MEDICARE ==
[2020-08-30 11:31] VITALS: BP 140/62
[~2022-03-06] MED LIST changes: -LISI-334 PO; +LISI10TA16 PO; -LISI10TA2 PO; +LISI20TA18 PO; -POLY17PO28 PO; +POLY17PO52 PO; -REGADENOSON 0.4 MG/5 ML DISP.SYRIN. IV ONE
--- NOTE | 2022-03-06 16:22 | CARD ---
MR#: [id number] Date of Study: 03/06/2022 Ordering Physician: MARIE DOWD, Referring Physician: MARIE DOWD, Tech: Daphnie Mohan [facility],T APPROVED REPORT EXAM: Two-dimensional and M-mode echocardiogram with Doppler and color Doppler. Other Information Quality : AverageHR: 73bpm Rhythm : NSR INDICATION CVA/TIA LEFT VENTRICLE The left ventricle is normal size. There is mild concentric left ventricular hypertrophy. The left ve ntricle systolic function is normal. The ejection fraction is estimated at 65 to 70%. No regional wal l motion abnormalities noted. Transmitral Doppler flow pattern is Grade I-abnormal relaxation pattern . No left ventricle thrombus noted on this study. There is no ventricular septal defect visualized. T here is no left ventricular aneurysm. There is no mass noted in the left ventricle. RIGHT VENTRICLE The right ventricle is normal size. There is normal right ventricular wall thickness. The right ventr icular systolic function is normal. ATRIA The left atrium size is normal. The right atrium size is normal. The interatrial septum is intact wit h no evidence for an atrial septal defect or patent foramen ovale as noted on 2-D or Doppler imaging. AORTIC VALVE The aortic valve is mildly sclerotic. No aortic regurgitation is present. There is no aortic valvular stenosis. There is no aortic valvular vegetation. MITRAL VALVE The mitral valve leaflets are calcified. There is no evidence of mitral valve prolapse. There is no m itral valve stenosis. There is no mitral valve regurgitation noted. TRICUSPID VALVE The tricuspid valve is normal in structure and function. There is no tricuspid valve regurgitation no ana. There is no tricuspid valve prolapse or vegetation. There is no tricuspid valve stenosis. PULMONIC VALVE The pulmonic valve is not well visualized. There is no pulmonic valvular regurgitation. There is no p ulmonic valvular stenosis. GREAT VESSELS The aortic root is normal in size. The ascending aorta is normal in size. The pulmonary artery is nor mal. The IVC is normal in size and collapses >50% with inspiration. PERICARDIAL EFFUSION There is no pleural effusion. There is no evidence of significant pericardial effusion. Critical Notification Critical Value: No <Conclusion> The left ventricle systolic function is normal. The ejection fraction is estimated at 65 to 70%. No regional wall motion abnormalities noted. Transmitral Doppler flow pattern is Grade I-abnormal relaxation pattern. There is no evidence of significant pericardial effusion. Signed by : Long Varma, Electronically Approved : 03/06/2022 16:22:10
== END ==
LOC: ECHO 08:31
PROVIDERS: ATTEND Internal Medicine Cardiovascular Disease
DX: I35.1 Nonrheumatic aortic (valve) insufficiency (principal); I63.9 Cerebral infarction, unspecified
CPT/HCPCS: 93306; C8929